=== PATIENT | female | born 1995 | race Caucasian/White ===

== ENCOUNTER → 2016-12-01 | Outpatient (CLI) | payer OTHER ==
[~2016-12-01] MED LIST: ALBUAER2 PO; TRIA1SPR4 NAE
--- NOTE | 2016-12-01 15:36 | ECHOCARDIOGRAM REPORT ---
*NOTICE TO RECEIVING [employer] This information is strictly Confidential and protected under [place] law. [place] law prohibits you from making any further disclosure of this information unless further disclosure is expressly permitted by the written consent of the person to whom it pertains or is authorized by law. A general authorization for the release of medical or other information is not sufficient for this purpose. Hospital accepts no responsibility if the information is made available to any other person, INCLUDING THE PATIENT. Interpretation Summary * Name: LISSA OCHOA Study Date: 12/01/2016 01:52 PM BP: 110/52 mmHg * Patient Location: [facility] HR: 71 * : 1995 (M/d/yyyy) Gender: Female Height: 64 in * Age: 20 yrs Ethnicity: [place] Weight: 108 lb * Ordering Physician: Otoniel Gandhi * Referring Physician: Otoniel Gandhi * Performed By: Jinny Painting RCS * * Reason For Study: Chest pain * BSA: 1.5 m2 * -- Conclusions -- * Left ventricular systolic function is normal. * No regional wall motion abnormalities noted. * Ejection Fraction = 60-65%. * No significant valvular pathology. Procedure Details * Left Ventricle The left ventricle is normal in size. There is normal left ventricular wall thickness. Ejection Fraction = 60-65%. Left ventricular systolic function is normal. No regional wall motion abnormalities noted. * Right Ventricle The right ventricle is normal size. The right ventricular systolic function is normal as assessed by tricuspid annular plane systolic excursion (TAPSE) (normal >1.5 cm). * Atria The left atrial size is normal. Right atrial size is normal. No ASD detected; PFO is not assessed. * Mitral Valve The mitral valve is normal in structure and function. There is no mitral valve stenosis. Significant mitral regurgitation is absent. * Tricuspid Valve The tricuspid valve anatomy is normal. There is no tricuspid stenosis. Significant tricuspid regurgitation is absent. * Aortic Valve The aortic valve is normal in structure and function. No hemodynamically significant valvular aortic stenosis. No aortic regurgitation is present. * Pulmonic Valve The pulmonary valve is not well seen, but the Doppler examination is normal without significant regurgitation or stenosis. * Great Vessels The aortic root is normal size. The pulmonary artery is not well visualized, but is probably normal size. * Pericardium/Pleural There is no pericardial effusion. * Great Vessels Normal inferior vena cava size and collapsability with sniff indicates a normal right atrial pressure of 3 mmHg * * MMode 2D Measurements and Calculations * IVSd 0.75 cm * * LVIDd 4.2 cm * LVIDs 2.0 cm * LVPWd 0.78 cm * * IVS/LVPW 0.96 * FS 51.0 % * EDV(Teich) 77.5 ml * ESV(Teich) 13.5 ml * EF(Teich) 82.6 % * * EDV(cubed) 72.8 ml * ESV(cubed) 8.5 ml * EF(cubed) 88.3 % * * LV mass(C)d 94.9 grams * LV mass(C)dI 63.1 grams/m\S\2 * * SV(Teich) 64.1 ml * SI(Teich) 42.6 ml/m\S\2 * SV(cubed) 64.3 ml * SI(cubed) 42.7 ml/m\S\2 * * Ao root diam 2.3 cm * Ao root area 4.2 cm\S\2 * * LVOT diam 2.0 cm * LVOT area 3.0 cm\S\2 * * LVAd ap4 26.9 cm\S\2 * LVLd ap4 8.1 cm * EDV(MOD-sp4) 73.3 ml * EDV(sp4-el) 75.5 ml * LVAs ap4 13.7 cm\S\2 * LVLs ap4 6.3 cm * ESV(MOD-sp4) 25.5 ml * ESV(sp4-el) 25.3 ml * EF(MOD-sp4) 65.3 % * EF(sp4-el) 66.4 % * * LVAd ap2 32.9 cm\S\2 * LVLd ap2 8.5 cm * EDV(MOD-sp2) 106.7 ml * EDV(sp2-el) 108.8 ml * LVAs ap2 15.0 cm\S\2 * LVLs ap2 6.4 cm * ESV(MOD-sp2) 29.5 ml * ESV(sp2-el) 29.9 ml * EF(MOD-sp2) 72.3 % * EF(sp2-el) 72.6 % * * LVLd %diff 4.0 % * EDV(MOD-bp) 90.4 ml * LVLs %diff 1.9 % * ESV(MOD-bp) 27.9 ml * EF(MOD-bp) 69.1 % * * SV(MOD-sp4) 47.8 ml * SI(MOD-sp4) 31.8 ml/m\S\2 * * SV(MOD-sp2) 77.2 ml * SI(MOD-sp2) 51.3 ml/m\S\2 * * SV(MOD-bp) 62.5 ml * SI(MOD-bp) 41.5 ml/m\S\2 * * SV(sp4-el) 50.1 ml * SI(sp4-el) 33.3 ml/m\S\2 * * SV(sp2-el) 79.0 ml * SI(sp2-el) 52.4 ml/m\S\2 * * * Doppler Measurements and Calculations * MV E max leon 91.1 cm/sec * MV A max leon 55.0 cm/sec * * MV E/A 1.7 * * MV dec time 0.15 sec * * Ao V2 max 125.2 cm/sec * Ao max PG 6.3 mmHg * Ao max PG (full) 3.1 mmHg * SHANTE(V,A) 2.1 cm\S\2 * SHANTE(V,D) 2.1 cm\S\2 * * LV V1 max PG 3.1 mmHg * * LV V1 max 88.4 cm/sec * * * *
== END | disposition home or self-care (01) ==
LOC: C.CPL 13:24
PROVIDERS: ATTEND Family Medicine
DX: R07.9 Chest pain, unspecified (principal)